=== PATIENT | male | born 1995 | race Caucasian/White ===

== ENCOUNTER 2017-08-24 20:26 | Emergency (ER) | payer SELFPAY ==
[2017-08-24] MEDS ORDERED: KETOROLAC TROMETHAMINE 60 MG/2 ML VIAL IM ONE (20:40)
--- NOTE | 2017-08-24 21:32 | ED Physician Documentation ---
Lower Extremity Injury - HISTORIAN Historian: patient - HPI Stated Complaint: Right knee pain Chief Complaint: Lower Extremity Injury Onset: other (yesterday) Severity: moderate Context: fall, twist Modifying Factors:: other (Patient presents with c/o right knee pain, fell playing football and twisted right knee; Patient pain in posterior thigh just proximal to knee.) - ROS CONST: no problems CVS/RESP: none GI/: denies: nausea, vomiting MS/SKIN/LYMPH: none NEURO: denies: headache, head injury, anxiety, depression - PAST HX Past History: none Allergies/Adverse Reactions: Allergies Allergy/AdvReac Type Severity Reaction Status Date / Time No Known Allergies Allergy Verified 08/24/17 20:41 Home Medications: Ambulatory Orders Medication Instructions Recorded Ketorolac Tromethamine [Toradol] 10 mg PO TID #15 tablet 08/24/17 - SOCIAL HX Smoking History: cigarettes - FAMILY HX Family History: denies: none - VITAL SIGNS Vital Signs: Vital Signs Temp Pulse Resp BP Pulse Ox 98.4 F 85 16 116/66 96 08/24/17 20:26 08/24/17 21:40 08/24/17 21:40 08/24/17 21:40 08/24/17 21:40 - REVIEWED ASSESSMENTS Nursing Assessment Reviewed: Yes Vitals Reviewed: Yes ED Results Lab/Radiology - Orders Orders: ED Orders Category Date Time Status KNEE 3 VIEWS [RAD] Stat Exams 08/24/17 Ordered Ketorolac Tromethamine [Toradol] Med 08/24/17 20:40 Discontinued 60 mg IM NOW ONE Lower Extremities Injury Phy - Physical Exam General Appearance: moderate distress, anxious Hips: bilateral hip: non-tender, normal inspection, normal range of motion, no evidence of injury Legs: bilateral: non-tender, normal inspection, normal range of motion, no evidence of injury Knees: right: pain, soft tissue tenderness, left: non-tender, normal range of motion, other (pain with palpation of posterior thigh; just proxinal to knee; Hamstring area), bilateral: normal inspection, no evidence of injury Ankle: bilateral: non-tender, normal inspection, normal range of motion, no evidence of injury Foot: bilateral foot: normal inspection, normal range of motion, no evidence of injury, pain, soft tissue tenderness Gait: normal Neuro/Vascular/Tendon: no vascular compromise, motor nml, sensation nml, ROM nml Head/ENT: nml inspection, pharynx nml Neck/Back: nml inspection, non-tender Discharge Clincal Impression: Sprain of right knee Qualifiers: Encounter type: initial encounter Involved ligament of knee: unspecified ligament Qualified Code(s): S83.91XA - Sprain of unspecified site of right knee , initial encounter Prescriptions: Ketorolac Tromethamine [Toradol] 10 mg PO TID #15 tablet Referrals: Primary Doctor,No [Primary Care Provider] - 2 Days Condition: Stable Disposition: 01 HOME, SELF-CARE Decision to Admit: NO Decision Time: 21:32
[2017-08-24 22:02] VITALS: BP 116/66
--- NOTE | 2017-08-25 07:25 | Diagnostic Imaging Report ---
MAXIMILIAN TRACEY (ICT PROJECT MANAGER) - ER [facility] [address] [address] Report Submission Date: Aug 24, 2017 9:25:31 PM CDT Patient Study Name: TAMRA MCMAHON Date: Aug 24, 2017 8:55:11 PM CDT Modality Type: DX Gender: M Description: LOWER EXTREMITY : 89 Institution: [facility] Physician: MAXIMILIAN TRACEY (DARCY) - ER Right knee 3 views Date of Exam: August 24, 2017. History: Rt medial knee pain after it popped playing football (Hx) / ITS.REASON fall, pain Note time : 08/24/2017 10:07:20 PM User : Melinda Mijares Rt medial knee pain after it popped playing football (DICOM Hx) / ITS.REASON fall , pain (Pt comments) Findings: No acute fracture or dislocation is identified. The patella is in appropriate relationship with the distal femur. The soft tissues are unremarkable. Impression: No acute osseous abnormality. Electronically signed on Aug 24, 2017 9:25:31 PM CDT by: Keyla LARSON
== END 2017-08-24 21:40 | disposition home or self-care (01) ==
LOC: ED 20:26
DX: S83.91XA Sprain of unspecified site of right knee, initial encounter (principal); Y93.61 Activity, american tackle football
CPT/HCPCS: 73562; J1885; 96372; 99283